=== PATIENT | male | born 1970 | race African-American/Black ===

== ENCOUNTER 2022-12-20 06:52 | Emergency (ER) | payer SELFPAY ==
[~2022-12-20] VITALS: Ht 182.9 cm; Wt 99.8 kg
[2022-12-20] MEDS ORDERED: KETOROLAC TROMETHAMINE 30 MG INJ IVP ONE (07:15)
[2022-12-20] MEDS ORDERED: IV NS 1000 ML 1,000 ML IV ONE (07:15)
[2022-12-20] MEDS ORDERED: KETOROLAC TROMETHAMINE 30 MG INJ ONE (08:17)
[2022-12-20] MEDS ORDERED: ONDANSETRON 4 MG/2 ML VIAL ONE (08:17)
[2022-12-20 08:28] LABS: HEMATOCRIT 46.1 % (36.7-47.1); MEAN CORPUSCULAR HEMOGLOBIN 30.4 uug (23.8-33.4); MEAN CORPUSCULAR VOLUME 88.8 fL (73.0-96.2); PLATELET COUNT (AUTO) 164 K/uL (152-348)
[2022-12-20] MEDS ORDERED: ONDANSETRON 4 MG/2 ML VIAL IV ONE (08:30)
[2022-12-20 08:35] LABS: CREATININE 1.5 mg/dL (0.6-1.3)
--- NOTE | 2022-12-20 08:35 | NUR ---
MD at bedside talking with patient, has been informed of plan of care and medicated as per order. IVF infusing as per order.
[2022-12-20 08:41] LABS: BILIRUBIN,DIRECT 0.2 mg/dL (0.0-0.2); BILIRUBIN,TOTAL 0.9 mg/dL (0.2-1.0); TOTAL PROTEIN, SERUM 6.9 g/dL (6.4-8.2)
--- NOTE | 2022-12-20 09:37 | NUR ---
NS at bedside talking with patient re: results, no change in primary assessment, IVF continues as per order.
[2022-12-20] MEDS ORDERED: ONDA4TAB11 PO (10:22)
[2022-12-20] MEDS ORDERED: ACET1TAB23 PO (10:22)
--- NOTE | 2022-12-20 10:22 | NUR ---
patient continues to rest awaiting discharge instructions, no voiced c/o at this time.
[2022-12-20] MEDS ORDERED: HYDR-3980 PO (10:28)
--- NOTE | 2022-12-20 10:31 | NUR ---
ACI given, HL removed, remains stable for discharge home.
[2022-12-20 10:32] VITALS: BP 109/50; O2SAT 98
== END 2022-12-20 10:46 | disposition home or self-care (01) ==
LOC: ER 07:03
DX: R10.84 Generalized abdominal pain (principal); M54.50 Low back pain, unspecified; Z90.49 Acquired absence of other specified parts of digestive tract; R94.4 Abnormal results of kidney function studies
CPT/HCPCS: 99285; 96374; 76705; 96361; 96375; 80076; 80048; 83690; 85025; 36415; 93005; J1885; J2405; J7040 ×2; A4663